=== PATIENT | female | born 1975 | race Caucasian/White ===

== ENCOUNTER 2018-11-09 09:02 | Emergency (ER) | payer SELFPAY ==
[2018-11-09 09:34] VITALS: BP 118/63
--- NOTE | 2018-11-09 09:56 | UC ---
UC General HPI - HPI Summary HPI Summary: pt recently completed an antibiotic, steroids and an inhaler for bronchitis. over the past 3 days, she has developed soreness in her mouth and throat plus a thick white material on her denture plate despite cleaning it daily. no hx DM or prior thrush but she thinks this is thrush. - History of Current Complaint Chief Complaint: UCGeneralIllness Stated Complaint: POSS THRUSH Time Seen by Provider: 11/09/18 09:30 Hx Obtained From: Patient Hx Last Menstrual Period: ablasion Onset/Duration: Gradual Onset Timing: Constant Pain Intensity: 3 Associated Signs & Symptoms: Negative: Fever - Allergy/Home Medications Allergies/Adverse Reactions: Allergies Allergy/AdvReac Type Severity Reaction Status Date / Time latex Allergy Intermediate skin Verified 11/09/18 09:37 blisters metaxalone [From Skelaxin] Allergy Intermediate Itching Verified 11/09/18 09:36 morphine AdvReac Intermediate Vomiting Verified 11/09/18 09:36 Home Medications: Home Medications Venlafaxine CAP (NF) [Effexor CAP (NF)] 75 mg PO BID 11/09/18 [History Confirmed 11/09/18] busPIRone TAB* [Buspar TAB *] 15 mg PO BID 11/09/18 [History Confirmed 11/09/18] PMH/Surg Hx/FS Hx/Imm Hx Endocrine History: Dyslipidemia Respiratory History: Bronchitis Psychological History: Anxiety, Depression - Surgical History Surgical History: Yes Surgery Procedure, Year, and Place: [place]. TUBAL. 2 C-SECTS - Family History Known Family History: Positive: Non-Contributory - Social History Alcohol Use: Rare Substance Use Type: None Smoking Status (MU): Current Every Day Smoker Type: Cigarettes Amount Used/How Often: 1 PPD Length of Time of Smoking/Using Tobacco: 20+ YRS Have You Smoked in the Last Year: Yes - Immunization History Vaccination Up to Date: Yes Review of Systems All Other Systems Reviewed And Are Negative: Yes Constitutional: Positive: Negative Skin: Positive: Negative Eyes: Positive: Negative ENT: Positive: Negative Respiratory: Positive: Negative Cardiovascular: Positive: Negative Gastrointestinal: Positive: Negative Genitourinary: Positive: Negative Motor: Positive: Negative Neurovascular: Positive: Negative Musculoskeletal: Positive: Negative Neurological: Positive: Negative Psychological: Positive: Negative Physical Exam Triage Information Reviewed: Yes Appearance: Well-Appearing Vital Signs: Initial Vital Signs Temp 97.8 F 11/09/18 09:31 Pulse 75 11/09/18 09:31 Resp 18 11/09/18 09:31 BP 118/63 11/09/18 09:31 Pulse Ox 99 11/09/18 09:31 Vital Signs Reviewed: Yes Eyes: Positive: Conjunctiva Clear ENT: Positive: TMs normal, Other - Oral mucosa and tongue appear raw. Pt just cleaned and sealed denture plate ENTRY LEVEL but notes it had thick white material on it.. Negative: Nasal congestion, Nasal drainage Neck: Positive: Supple, Nontender, No Lymphadenopathy Respiratory: Positive: Lungs clear, Normal breath sounds Cardiovascular: Positive: RRR, No Murmur Abdomen Description: Positive: Nontender, No Organomegaly, Soft Bowel Sounds: Positive: Present Musculoskeletal: Positive: ROM Intact Neurological: Positive: Alert Psychological: Positive: Age Appropriate Behavior Skin Exam: Normal Course/Dx - Course Course Of Treatment: hx and PE c/w thrush; however, pt has long hx smoking thus need for close f/u and recheck to resolution was stressed to ensure no other pathology such as CA to which pt agrees. - Differential Dx - Multi-Symptom Differential Diagnoses: Other - viral stomatitis, thrush, CA - Diagnoses Provider Diagnosis: Thrush Discharge - Sign-Out/Discharge Documenting (check all that apply): Patient Departure All imaging exams completed and their final reports reviewed: No Studies - Discharge Plan Condition: Stable Disposition: HOME Prescriptions: Nystatin SUSPENSION* 500,000 unit MT QID 7 Days #1 bottle Patient Education Materials: Oral Candidiasis (ED) Referrals: Lola Chadwick NP [Primary Care Provider] - 7 Days - Billing Disposition and Condition Condition: STABLE Disposition: Home
== END 2018-11-09 10:00 | disposition home or self-care (01) ==
LOC: UCCORT 09:02
DX: B37.0 Candidal stomatitis (principal); F17.210 Nicotine dependence, cigarettes, uncomplicated; Z88.8 Allergy status to other drugs, medicaments and biological substances; Z88.5 Allergy status to narcotic agent
CPT/HCPCS: 99212; G0463

== ENCOUNTER → 2019-09-28 13:00 | Day surgery (SDC) | payer OTHER ==
[~2019-09-28 13:00] MED LIST: Acetaminophen IV 1GM/100ML * 1,000 MG/100 ML VIAL IVPB ONE; Acetaminophen IV 1GM/100ML * 100 ML ONE; Buffered Lidocaine 1% SYRIN* 1 ML/SYRINGE INTRADERM ONE; Bupivacaine 0.25% SDV PF* 10 ML VIAL INJ ONE; DiMENhydriNATE IV* 50 MG/ML VIAL IV PUSH PRN; DiMENhydriNATE IV* 50 MG/ML VIAL ONE; Lactated Ringers 1000 ML Bag* 1,000 ML IV SCH; Lidocaine 2% PF * 5 ML VIAL ONE; Naloxone* 0.4 MG/ML 1 ML VIAL IV PRN; Propofol* 10 MG/ML 20 ML BTL ONE; ceFAZolin 2 GM in NS PREMIX(*) 2 GM/100 ML BAG IVPB ONE; fentaNYL* 50 MCG/ML 2 ML VIAL (100 MCG VIAL) IV PRN; fentaNYL* 50 MCG/ML 2 ML VIAL (100 MCG VIAL) ONE; oxyCODONE/Acetamin 5/325 MG* TAB ONE
[2019-09-28 18:40] VITALS: BP 123/68
--- NOTE | 2019-09-29 00:53 | OP ---
DATE OF OPERATION: 09/28/19 - [facility] DATE OF : 77 SURGEON: Mo Kennedy MD ASSISTANTS: ALHAJI Damon, followed by ALHAJI Shi. An assistant professor of communication was needed for the procedure to aid in positioning of the arm and retraction. ANESTHESIOLOGIST: Dr. Yan. ANESTHESIA: General. PRE-OP DIAGNOSES: 1. Left carpal tunnel syndrome. 2. Left cubital tunnel syndrome. 3. Left middle trigger finger. POST-OP DIAGNOSES: 1. Left carpal tunnel syndrome. 2. Left cubital tunnel syndrome. 3. Left middle trigger finger. OPERATIVE PROCEDURE: 1. Left carpal tunnel release. 2. Left in situ cubital tunnel release. 3. Left middle trigger finger release. INDICATIONS: Maribell has the aforementioned condition. She has had prior nerve decompression surgery on the right and has done pretty well. We talked about risks and benefits and that one side cannot predict the other side. She wants to proceed. ESTIMATED BLOOD LOSS: 2 mL. COMPLICATIONS: None. FINDINGS: See above and below. DESCRIPTION OF PROCEDURE: Ms. Starks was seen in the preoperative holding area. The correct site, side, and procedure were identified. We came back to the operating room. The arm was prepped and draped in the usual fashion and a time-out was performed. The arm was exsanguinated with the Esmarch and the tourniquet was inflated to 250 mmHg. I went ahead and made a 1-cm incision over the A1 jennifer of the left middle finger. Dissection was carried down. Full-thickness flaps were raised off the tendon sheath. Ragnell retractors were placed. The A1 jennifer was released. The leading edge of the A2 jennifer was released. The fascia proximal to the A1 jennifer was released. At this point, I could not induce any further catching of the finger. The fingers moved very nicely. I went ahead and irrigated out the wound. The skin was closed with 4-0 nylon suture. I then made a 3-cm longitudinal incision in the proximal palm. Dissection was carried down through the subcutaneous tissue and palmar fascia. The transverse carpal ligament was released off the radial aspect of the hook of the hamate. The release was completed distally with the tenotomy scissors and proximally the subcutaneous tissue was released and retracted out of the way. I released the remainder of the transverse carpal ligament and distal antebrachial fascia with the tenotomy scissors under direct visualization. Once I had confirmed the release and everything was looking good, the wound was irrigated out and the skin was closed with 4-0 nylon suture. The arm was then abducted and externally rotated and a curvilinear incision was made centered over the decubital tunnel. Dissection was carried down. Care was taken to preserve the medial antebrachial cutaneous nerve, I unroofed the nerve just proximal to the Yeboah's ligament, and the appendiceal retractors were placed proximally and then the release was carried out past the arcade of Comfrey and then came distally and released Yeboah's ligament. There was a branch of the medial antebrachial cutaneous nerve that was draped over the area distally that was preserved. I released the superficial FCU fascia. I split the two ends of the FCU and then released the subfascial layer. At this point, the decompression was looking very nice. There was no subluxation of the nerve. Hemostasis was obtained. Subcutaneous tissue was reapproximated with 3-0 Vicryl. Skin was closed with 3-0 Monocryl and Steri-Strips. 0.25% Marcaine was infiltrated around all the operative areas. Soft dressings were applied and she was taken to the recovery room in stable condition. [id number]/[facility] #: [id number] JED
== END | disposition home or self-care (01) ==
LOC: OR 13:00
PROVIDERS: ATTEND Orthopaedic Surgery Hand Surgery
DX: G56.02 Carpal tunnel syndrome, left upper limb (principal); G56.22 Lesion of ulnar nerve, left upper limb; M65.332 Trigger finger, left middle finger; Z68.41 Body mass index [BMI] 40.0-44.9, adult; E78.5 Hyperlipidemia, unspecified; I34.1 Nonrheumatic mitral (valve) prolapse; F41.8 Other specified anxiety disorders; F17.210 Nicotine dependence, cigarettes, uncomplicated
CPT/HCPCS: A9270-GY; J0690; J1240; J2704; J3010; J3490